=== PATIENT | female | born 1975 | race Hispanic/Latino ===

== ENCOUNTER 2016-09-18 17:08 | Emergency (ER) | payer MEDICAID, OTHER, SELFPAY ==
[2016-09-18 17:26] VITALS: BMI 33.8
--- NOTE | 2016-09-18 17:36 | ED PDOC ---
HPI: Psych/Substance Abuse Time Seen by Provider: 09/18/16 17:25 Chief Complaint (Provider): ETOH ingestion History Per: Patient History/Exam Limitations: no limitations Onset/Duration Of Symptoms: Persistent Additional Complaint(s): 40 y/o female brought in by EMS for acute alcohol intoxication. Patient found sleeping in public; no signs of trauma. Patient awake upon arrival; denies acute medical or psychiatric complaints. Past Medical History Reviewed: Historical Data, Nursing Documentation, Vital Signs - Medical History PMH: Anxiety, Bipolar Disorder, Depression, Diabetes, Hepatitis (C, with cirrhosis and liver failure), Personality Disorder Denies: HIV, HTN, Chronic Kidney Disease, Seizures, Sexually Transmitted Disease - Surgical History Surgical History: Back Surgery (neck abcess) - Family History Family History: States: Unknown Family Hx - Immunization History Hx Tetanus Toxoid Vaccination: No Hx Influenza Vaccination: No Hx Pneumococcal Vaccination: No - Home Medications Home Medications: Ambulatory Orders Medication Instructions Recorded traZODone [Desyrel] 200 mg PO HS PRN #60 tab 01/03/16 Fluoxetine HCl [Prozac] 80 mg PO DAILY 09/11/16 Gabapentin [Neurontin] 600 mg PO TID 09/11/16 Lorazepam [Ativan] 2 mg PO Q6H PRN 09/11/16 FLUoxetine [Prozac] 80 mg PO DAILY #30 cap 09/18/16 Gabapentin [Neurontin] 600 mg PO TID #90 cap 09/18/16 traZODone [Desyrel] 100 mg PO HS #60 tab 09/18/16 - Allergies Allergies/Adverse Reactions: Allergies Allergy/AdvReac Type Severity Reaction Status Date / Time acetaminophen [From Tylenol] AdvReac RASH Verified 09/11/16 23:36 Review of Systems ROS Statement: Except As Marked, All Systems Reviewed And Found Negative Physical Exam - Reviewed Nursing Documentation Reviewed: Yes Vital Signs Reviewed: Yes - Physical Exam Appears: Positive for: Well, Non-toxic, No Acute Distress Head Exam: Positive for: ATRAUMATIC, NORMAL INSPECTION, NORMOCEPHALIC Skin: Positive for: Normal Color Eye Exam: Positive for: Normal appearance Respiratory: Negative for: Respiratory Distress Neurologic/Psych: Positive for: Alert, Oriented Medical Decision Making Medical Decision Making: Patient awake and alert with steady gait. No emergent care needed. Stable for d/ c home. Scribe Attestation: Documented by Marian Chance acting as a scribe for NATE Benítez Provider Attestation: All medical record entries made by the Scribe were at my direction and personally dictated by me. I have reviewed the chart and agree that the record accurately reflects my personal performance of the history, physical exam, medical decision making, and the department course for this patient. I have also personally directed, reviewed, and agree with the discharge instructions and disposition. Disposition - Clinical Impression Clinical Impression: Alcohol abuse - Patient ED Disposition Is Patient to be Admitted: No - Disposition Disposition: Routine/Home Disposition Time: 18:07 Condition: STABLE Instructions: Alcohol Intoxication (ED) Forms: [facility] [facility] (Amharic)
[2016-09-18 17:44] VITALS: BP 132/76; PULSE 76; RESP 16; TEMP 98.1; O2SAT 97
== END 2016-09-18 17:46 | disposition home or self-care (01) ==
LOC: H.ER 17:08
DX: F10.10 Alcohol abuse, uncomplicated (principal); E11.9 Type 2 diabetes mellitus without complications; F31.9 Bipolar disorder, unspecified; F41.9 Anxiety disorder, unspecified; K74.60 Unspecified cirrhosis of liver

== ENCOUNTER 2016-09-22 21:56 | Inpatient (IN) | payer MEDICAID, OTHER, SELFPAY ==
[2016-09-22 21:56] VITALS: BMI 33.8
--- NOTE | 2016-09-22 21:58 | ED PDOC ---
Psych Transfer Clearance - Clearance Statement Clearance Statement: Reviewed vital signs, lab results and transfer papers. Patient clinically stable for psychiatric admission.
[2016-09-22] MEDS ORDERED: DiphenhydrAMINE 50 mg/ml Inj IM PRN (22:31)
[2016-09-22] MEDS ORDERED: Alum-Mag Hydrox-Simethicone Susp (30 mL) PO PRN (22:31)
[2016-09-22] MEDS ORDERED: Magnesium Hydroxide Susp 30 ml UD PO PRN (22:31)
--- NOTE | 2016-09-23 00:26 | PCM.BM ---
<Gerber,Laury L - Last Filed: 09/23/16 00:22> Treatment Plan Problems - Problems identified on initial assessmt Altered sleep pattern Date Initiated: 09/23/16 Time Initiated: 00:29 Assessment reference: NA Status: Active Altered Health Maintenance Date Initiated: 09/23/16 Time Initiated: 00:29 Assessment reference: NA Status: Active Self care deficit Date Initiated: 09/23/16 Time Initiated: 00:30 Assessment reference: NA Status: Active Treatment assets and liabiliti Patient Assests: cooperative, motivated, ADL independent, negotiates basic needs Patient Liabilities: poor support system, substance abuse, medical problems - Milieu Protocol Maintain good personal hygiene: daily Encourage regular showers, daily Remind patient to perform daily oral care, daily Assist patient to perform ADL's Maintain personal safety: daily Educate patient to report safety concerns to staff, daily Monitor environment for contraband/sharps Medication safety: Monitor for expected outcome, potential side effects: daily, Assess barriers to learning: daily, Assess readiness for medication education: every shift Discharge/Continuing Care - Education Needs Education Needs: Patient Medication, Patient Diagnosis/Disease Process, Patient Coping Skills, Patient Anger Management skills, Patient Placement options, Patient Community resources, Patient Activities of Daily Living, Patient Pain, Patient Nutrition, Patient Uses of Medical Equipment, Patient Health Practices/ Safety, Patient Personal Hygiene/Grooming, Patient Aftercare Safety Plan, Patient Other - Discharge Discharge Criteria: Free of Suicidal thoughts, Normal sleep pattern, Ability to care for self, No longer exhibiting s/s of withdrawal <Fernando Castellanos - Last Filed: 09/24/16 09:32> Treatment Plan Problems - Problems identified on initial assessmt Depression Date Initiated: 09/23/16 Time Initiated: 09:28 Assessment reference: SW Status: Active Comment: Restart Medications and encourage pt to participate in groups. Alcohol Use and Withdrawal Date Initiated: 09/23/16 Time Initiated: 09:28 Assessment reference: SW Status: Active Comment: Provide pt with interventions to help gain insight into alcohol use. Family Contact Family involvement: Famliy/SO not involved Family contact: Patient agrees to contact, Telephone contact initiated by staff Family contact name: Julisa (aunt) Family contact comment: [phone] - Goals for Treatment Patient goals for treatment: Restart medications, decrease depression, eliminate SI, help pt through withdrawl.
[2016-09-23 10:05] LABS: T4 12.1 ug/dl (5.5-11.0)
[2016-09-23] MEDS: Multivitamin With Minerals Tab PO SCH (10:12)
[2016-09-23 10:18] LABS: T3 1.57 nmol/L (1.49-2.60)
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
[2016-09-24] MEDS: Multivitamin With Minerals Tab PO SCH (09:27)
--- NOTE | 2016-09-24 10:06 | PCM.PYCHPN ---
Psychiatric Progress Note - Psychiatric Progress Note Patient seen today, length of contact: discussed with team Patient Chief Complaint: i can't eat Problems Identified/Issues Discussed: pt is still tremulous. states her stomach is upset and she doesn't want to eat. she is isolating in her room. she denies suicidal thoughts Medication Change: No Medical Record Reviewed: Yes Mental Status Examination - Cognitive Function Orientation: Person, Place, Situation, Time Memory: Intact Attention: WNL Concentration: WNL Association: WNL Fund of Knowledge: WN Decription of patient's judgement and insights: fair - Mood Mood: Depressed - Affect Affect: Depressed - Formal Thought Process Formal Thought Process: No Impairment - Suicidal Ideation Suicidal Ideation: No - Homicidal Ideation Homicidal Ideation: No Goal/Treatment Plan - Goal/Treatment Plan Need for Continued Stay: Remain at risks for inpatient hospitalization, Discharge may exacerbated symptoms Progress Toward Problem(s) and Goals/Treatment Plan: alcohol dependence major depression, recurrent will continue current treatment disposition planning hold taper of ativan until tomorrow Estimated Date of D/C: 09/30/16
--- NOTE | 2016-09-24 13:39 | PCM.PYCHPN ---
Psychiatric Progress Note - Psychiatric Progress Note Patient seen today, length of contact: disregard this note as it is written in error Patient Chief Complaint: i am nauseas Problems Identified/Issues Discussed: pt less tremulous today. wants to get substance abuse treatment, but has "many things to do" isolates in room. c/o nausea Medication Change: Yes (start celexa) Medical Record Reviewed: Yes Mental Status Examination - Cognitive Function Orientation: Person, Place, Situation, Time Memory: Intact Attention: WNL Concentration: WNL Association: WNL Fund of Knowledge: [facility] Decription of patient's judgement and insights: fair - Mood Mood: Depressed - Affect Affect: Depressed - Speech Speech: Appropriate - Formal Thought Process Formal Thought Process: No Impairment - Suicidal Ideation Suicidal Ideation: No - Homicidal Ideation Homicidal Ideation: No Goal/Treatment Plan - Goal/Treatment Plan Need for Continued Stay: Remain at risks for inpatient hospitalization, Discharge may exacerbated symptoms Progress Toward Problem(s) and Goals/Treatment Plan: alcohol dependence major depression, recurrent will continue current treatment disposition planning hold taper of ativan until tomorrow Estimated Date of D/C: 09/30/16
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
[2016-09-25] MEDS: Multivitamin With Minerals Tab PO SCH (10:02)
--- NOTE | 2016-09-25 12:02 | PCM.PYCHPN ---
Psychiatric Progress Note - Psychiatric Progress Note Patient seen today, length of contact: discussed with team Patient Chief Complaint: i am a little better Problems Identified/Issues Discussed: pt still with c/o nausea, although appetite is improved. she is leaving room and socializing more today. expressing that she is too worried about losing her bike to want to go to rehab. Medication Change: No ( ) Medical Record Reviewed: Yes Mental Status Examination - Cognitive Function Orientation: Person, Place, Situation, Time Memory: Intact Attention: WNL Concentration: WNL Association: WNL Fund of Knowledge: [facility] Decription of patient's judgement and insights: fair - Mood Mood: Depressed - Affect Affect: Depressed - Speech Speech: Appropriate - Formal Thought Process Formal Thought Process: No Impairment - Suicidal Ideation Suicidal Ideation: No - Homicidal Ideation Homicidal Ideation: No Goal/Treatment Plan - Goal/Treatment Plan Need for Continued Stay: Remain at risks for inpatient hospitalization, Discharge may exacerbated symptoms Progress Toward Problem(s) and Goals/Treatment Plan: alcohol dependence major depression, recurrent will continue current treatment disposition planning start to taper ativan to 1.5mg tid start prozac this weekend Estimated Date of D/C: 09/30/16
--- NOTE | 2016-09-25 15:56 | CT ---
PROCEDURE: CT HEAD WITHOUT CONTRAST. HISTORY: Head trauma COMPARISON: Head CT without contrast 09/04/2016. TECHNIQUE: Axial computed tomography images were obtained through the head/brain without intravenous contrast. Radiation dose: Total exam DLP = 838 mGy-cm. This CT exam was performed using one or more of the following dose reduction techniques: Automated exposure control, adjustment of the mA and/or kV according to patient size, and/or use of iterative reconstruction technique. FINDINGS: HEMORRHAGE: No intracranial hemorrhage. BRAIN: No mass effect or edema. No atrophy or chronic microvascular ischemic changes. VENTRICLES: Unremarkable. No hydrocephalus. CALVARIUM: Unremarkable. PARANASAL SINUSES: Unremarkable as visualized. No significant inflammatory changes. MASTOID AIR CELLS: Unremarkable as visualized. No inflammatory changes. OTHER FINDINGS: None. IMPRESSION: Normal CT of the Head. No significant interval change compared to prior head CT 09/04/2016.
[2016-09-26] MEDS: Multivitamin With Minerals Tab PO SCH (08:46)
--- NOTE | 2016-09-26 11:21 | PCM.PYCHPN ---
Psychiatric Progress Note - Psychiatric Progress Note Patient seen today, length of contact: discussed with team Patient Chief Complaint: why didn't you give me prozac ? Problems Identified/Issues Discussed: pt no longer with nausea. less tremulous. c.o depression. some mood lability and irritability. Medication Change: Yes (restart prozac) Medical Record Reviewed: Yes Mental Status Examination - Cognitive Function Orientation: Person, Place, Situation, Time Memory: Intact Attention: WNL Concentration: WNL Association: WNL Fund of Knowledge: [facility] Decription of patient's judgement and insights: fair - Mood Mood: Depressed, Anxious - Affect Affect: Depressed - Speech Speech: Appropriate - Formal Thought Process Formal Thought Process: No Impairment Psychotic Thoughts and Behaviors: denies a/v hallucinations - Suicidal Ideation Suicidal Ideation: No - Homicidal Ideation Homicidal Ideation: No Goal/Treatment Plan - Goal/Treatment Plan Need for Continued Stay: Remain at risks for inpatient hospitalization, Discharge may exacerbated symptoms Progress Toward Problem(s) and Goals/Treatment Plan: alcohol dependence major depression, recurrent will continue current treatment disposition planning lower ativan to 1mg tid start prozac 20mg daily Estimated Date of D/C: 09/30/16
[2016-09-27] MEDS: Multivitamin With Minerals Tab PO SCH (09:34)
--- NOTE | 2016-09-27 12:22 | PCM.PYCHPN ---
Psychiatric Progress Note - Psychiatric Progress Note Patient seen today, length of contact: discussed with team Patient Chief Complaint: i take ativan when i am home Problems Identified/Issues Discussed: pt now anxious about stopping her ativan and states she takes it at home. states she does not want inpt rehab. some mood lability. tolerating addition of Prozac Medication Change: No ( ) Medical Record Reviewed: Yes Mental Status Examination - Cognitive Function Orientation: Person, Place, Situation, Time Memory: Intact Attention: WNL Concentration: WNL Association: WNL Fund of Knowledge: [facility] Decription of patient's judgement and insights: fair - Mood Mood: Depressed, Anxious - Affect Affect: Depressed - Speech Speech: Appropriate - Formal Thought Process Formal Thought Process: No Impairment Psychotic Thoughts and Behaviors: denies a/v hallucinations - Suicidal Ideation Suicidal Ideation: No - Homicidal Ideation Homicidal Ideation: No Goal/Treatment Plan - Goal/Treatment Plan Need for Continued Stay: Remain at risks for inpatient hospitalization, Discharge may exacerbated symptoms Progress Toward Problem(s) and Goals/Treatment Plan: alcohol dependence major depression, recurrent will continue current treatment disposition planning lower ativan to 1mg tid continue prozac 20mg daily Estimated Date of D/C: 09/30/16
[2016-09-28] MEDS: Multivitamin With Minerals Tab PO SCH (08:27)
--- NOTE | 2016-09-28 13:59 | PCM.PYCHPN ---
Psychiatric Progress Note - Psychiatric Progress Note Patient seen today, length of contact: discussed with team Patient Chief Complaint: i can't believe you lower my ativan Problems Identified/Issues Discussed: pt still resistant to idea of tapering ativan. she is seeking increase in prozac. she isolates in room. minimizes role of alcohol dependence on her symptoms. Medication Change: Yes ( ) Medical Record Reviewed: Yes Mental Status Examination - Cognitive Function Orientation: Person, Place, Situation, Time Memory: Intact Attention: WNL Concentration: WNL Association: WNL Fund of Knowledge: WN Decription of patient's judgement and insights: fair - Mood Mood: Depressed, Anxious - Affect Affect: Depressed - Speech Speech: Appropriate - Formal Thought Process Formal Thought Process: No Impairment Psychotic Thoughts and Behaviors: denies a/v hallucinations - Suicidal Ideation Suicidal Ideation: No - Homicidal Ideation Homicidal Ideation: No Goal/Treatment Plan - Goal/Treatment Plan Need for Continued Stay: Remain at risks for inpatient hospitalization, Discharge may exacerbated symptoms Progress Toward Problem(s) and Goals/Treatment Plan: alcohol dependence major depression, recurrent will continue current treatment disposition planning lower ativan to 1mg bid increase prozac to 60mg daily Estimated Date of D/C: 09/30/16
[2016-09-28 17:04] VITALS: O2SAT 100
[2016-09-29] MEDS: Multivitamin With Minerals Tab PO SCH (09:20)
[2016-09-29 09:55] VITALS: BP 139/79; PULSE 90; RESP 20; TEMP 96
--- NOTE | 2016-09-29 11:52 | PCM.PYCHDC ---
Mental Status Examination - Mental Status Examination Orientation: Person, Place, Situation, Time Memory: Intact Mood: Neutral Affect: Broad Speech: Appropriate Attention: WNL Concentration: WNL Association: WNL Fund of Knowledge: WNL Formal Thought Process: No Impairment Description of patient's judgement and insight: fair Psychotic Thoughts and Behaviors: denies a/v hallucinations Suicidal Ideation: No Current Homicidal Ideation?: No Plan: pt denies any suicidal or homicidal thoughts Discharge Summary - Discharge Note Reason for Hospitalization: alcohol dependence, suicidal threats Psychiatric History (includes Medical, Family, Personal Hx): history of previous admisssions, recent dc from [facility] Consultations:: List each consultation separately and include: 1. Reason for request. 2. Findings. 3. Follow-up Consultations: seen by hospitalist Summary of Hospital Course include:: 1. Description of specific treatment plan utilized for patients during their course of treatmen. 2. Summarize the time- course for resolution of acute symptoms and/or regressed behaviors. 3. Describe issues identified and worked on during hospitalization. 4. Describe medication utilized. 5. Describe medical problems identified and treated. 6. Reassessment of suicide risk Summary of Hospital Course: pt discharged from [facility] on 09/18/16. she has a history of alcohol dependence and depression. she had a bal of over 300 when presenting to ER. she was brought to [facility] ER by the police after they had to physically prevent her from jumping over a railing in a suicide attempt. pt reports she has been depressed and again abusing alcohol- she states she drinks 3-4 pints of vodka daily. she is homeless. she does not appear to have been following up with any treatment. she is currently tremulous and nauseated. she reports feeling safe in the hospital now. she denies any psychotic symptoms. hospital course [facility] and oriented to the unit. placed on routine safety protocols. started on ativan 2mg tid to help detox from alcohol. pt tolerated the tapering of the ativan and was found hoarding ativan pills in her room, despite asking for higher dose. she was denying suicidal or homicidal thoughts. she was stating that she did not want to have any inpt treatment for alcohol dependence. she was not exhibiting any withdrawal symptoms. she was discharged against medical advice. - Final Diagnosis (DSM 5) Condition upon Discharge: GOOD DSM 5: alcohol dependence depression, recurrent moderate Disposition: AGAINST MEDICAL ADVICE Follow-up Treatment Plan: discharged against medical advice as pt was misusing and hoarding ativan. discussed risk of misuing ativan and danger of mixing ativan with alcohol pt encouraged to attend AA meetings daily and to abstain from alcohol pt encouraged to call 911 if any suicidal or homicidal thoughts. no medications were provided to pt - Smoking Cessation Smoking Cessation Medication prescribed: No - Antipsychotic Medications Pt discharged on 2 or more routine antipsychotic medications: No
== END 2016-09-29 12:00 | disposition left against medical advice (07) | DRG 749 ==
LOC: H.ER 21:56 → H.PSYCH 22:04
PROVIDERS: ADMIT Psychiatry & Neurology Psychiatry; ATTEND Psychiatry & Neurology Psychiatry
DX: F10.229 Alcohol dependence with intoxication, unspecified (principal); R45.851 Suicidal ideations; K70.30 Alcoholic cirrhosis of liver without ascites; F33.1 Major depressive disorder, recurrent, moderate; B19.20 Unspecified viral hepatitis C without hepatic coma; K70.10 Alcoholic hepatitis without ascites; K76.0 Fatty (change of) liver, not elsewhere classified; Y90.8 Blood alcohol level of 240 mg/100 ml or more; Z59.0 Homelessness; Z91.410 Personal history of adult physical and sexual abuse; F17.210 Nicotine dependence, cigarettes, uncomplicated; F41.9 Anxiety disorder, unspecified; D63.8 Anemia in other chronic diseases classified elsewhere; R25.1 Tremor, unspecified

== ENCOUNTER 2016-09-30 08:34 | Observation (INO) | payer SELFPAY ==
[2016-09-30 08:35] VITALS: BMI 33.8
[2016-09-30 08:39] VITALS: BP 111/67; PULSE 111; RESP 20; TEMP 97.1; O2SAT 99
--- NOTE | 2016-09-30 10:22 | ED PDOC ---
HPI: Psych/Substance Abuse Time Seen by Provider: 09/30/16 09:13 Chief Complaint (Nursing): Alcohol Ingestion Chief Complaint (Provider): Alcohol Ingestion History Per: EMS History/Exam Limitations: intoxication (etoh) Onset/Duration Of Symptoms: Hrs (prior to arrival ) Additional Complaint(s): Teena Farris is a 40 year old female brought to the ED by [place] Police for alcohol intoxication [place] The patient states she was taking a nap and admits to drinking alcohol. She denies any head injury. No drugs. Not suicidal or homicidal. No chest pain, dyspnea, headaches, dizziness. PMD: None provided Past Medical History Reviewed: Historical Data, Nursing Documentation, Vital Signs Vital Signs: Last Vital Signs Temp 97.1 F L 09/30/16 08:38 Pulse 111 H 09/30/16 08:38 Resp 20 09/30/16 08:38 BP 111/67 09/30/16 08:38 Pulse Ox 99 09/30/16 08:38 - Medical History PMH: Anxiety, Bipolar Disorder, Depression, Diabetes, Gastritis, Hepatitis (C, with cirrhosis and liver failure), Pancreatitis, Personality Disorder Denies: HIV, HTN, Chronic Kidney Disease, Seizures, Sexually Transmitted Disease - Surgical History Surgical History: Back Surgery (neck abcess), - Family History Family History: States: Unknown Family Hx - Social History Current smoker - smoking cessation education provided: Yes Alcohol: Other Drugs: Denies - Immunization History Hx Tetanus Toxoid Vaccination: No Hx Influenza Vaccination: No Hx Pneumococcal Vaccination: No - Home Medications Home Medications: Ambulatory Orders Medication Instructions Recorded traZODone [Desyrel] 200 mg PO HS PRN #60 tab 01/03/16 FLUoxetine [Prozac] 60 mg PO DAILY cap 09/29/16 Folic Acid 1 mg PO DAILY tab 09/29/16 Gabapentin [Neurontin] 600 mg PO TID tab 09/29/16 Multimineral/Multivitamin 1 tab PO DAILY tab 09/29/16 [Therapeutic-M Tab] Ondansetron [Zofran Tab] 4 mg PO Q4 PRN tab 09/29/16 Thiamine [Vitamin B1 Tab] 100 mg PO DAILY tab 09/29/16 - Allergies Allergies/Adverse Reactions: Allergies Allergy/AdvReac Type Severity Reaction Status Date / Time acetaminophen [From Tylenol] AdvReac RASH Verified 09/22/16 06:22 Review of Systems Review Of Systems: ROS cannot be obtained secondary to pt's inabilty to answer questions. (etoh intoxication) Physical Exam - Reviewed Nursing Documentation Reviewed: Yes Vital Signs Reviewed: Yes - Physical Exam Appears: Positive for: Non-toxic, No Acute Distress Head Exam: Positive for: ATRAUMATIC, NORMAL INSPECTION, NORMOCEPHALIC Skin: Positive for: Normal Color, Warm, DRY Eye Exam: Positive for: EOMI, Normal appearance, PERRL ENT: Positive for: Normal ENT Inspection Neck: Positive for: Normal, Painless ROM Cardiovascular/Chest: Positive for: Regular Rate, Rhythm, Chest Non Tender Respiratory: Positive for: Normal Breath Sounds. Negative for: Respiratory Distress Gastrointestinal/Abdominal: Positive for: Normal Exam, Bowel Sounds, Soft. Negative for: Tenderness Back: Positive for: Normal Inspection. Negative for: L CVA Tenderness, R CVA Tenderness Extremity: Positive for: Normal ROM. Negative for: Tenderness, Pedal Edema Neurologic/Psych: Positive for: Alert, Oriented - Laboratory Results Interpretation Of Abn Labs: 339 etoh - ECG O2 Sat by Pulse Oximetry: 99 (RA) Pulse Ox Interpretation: Normal Medical Decision Making Medical Decision Makin:13 Impression: Alcohol ingestion Plan: * Alcohol serum * POC * Crisis Evaluation * 1:1 Obvs * Admit to hospital routine Scribe Attestation: Documented by Adeline Waggoner, acting as a scribe for Cornelio Lema MD. Provider Scribe Attestation: All medical record entries made by the Scribe were at my direction and personally dictated by me. I have reviewed the chart and agree that the record accurately reflects my personal performance of the history, physical exam, medical decision making, and the department course for this patient. I have also personally directed, reviewed, and agree with the discharge instructions and disposition. ED OBSERVATION Discharge: Yes Date of observation admission: 09/30/16 Time of observation admission: 09:36 - Observation admission statement Patient is being placed in observation because:: Time intensive ED evaluation - Goals of Observation Goals of observation are:: Results of ED workup, crisis evaluation, and eventual disposition. - Progress Note Progress Note: 09/30/16 11:12 Pt's vitals are stable. Continue monitoring. Pending crisis eval. 09/30/16 12:39 Pt's vitals are stable. Continue monitoring. Pending crisis eval. 09/30/16 14:06 Continue monitoring pt. Vitals are stable. Pending crisis eval. 09/30/16 15:34 Awake. Tolerated PO. Fu with pcp. AAOx3. Ambulated with no issues. Disposition - Clinical Impression Clinical Impression: Alcohol abuse - Patient ED Disposition Is Patient to be Admitted: No Counseled Patient/Family Regarding: Studies Performed, Diagnosis, Need For Followup - Disposition Disposition: Routine/Home Disposition Time: 15:35 Condition: STABLE
== END 2016-09-30 16:55 | disposition home or self-care (01) ==
LOC: H.ER 08:34 → H.EROBSV 09:36
PROVIDERS: ADMIT Emergency Medicine; ATTEND Emergency Medicine
DX: F10.129 Alcohol abuse with intoxication, unspecified (principal); Y90.8 Blood alcohol level of 240 mg/100 ml or more; F41.9 Anxiety disorder, unspecified; K29.70 Gastritis, unspecified, without bleeding; B18.2 Chronic viral hepatitis C; E11.9 Type 2 diabetes mellitus without complications; F31.9 Bipolar disorder, unspecified; F60.9 Personality disorder, unspecified; F17.200 Nicotine dependence, unspecified, uncomplicated; Z88.6 Allergy status to analgesic agent

== ENCOUNTER 2016-09-30 22:16 | Observation (INO) | payer SELFPAY ==
[2016-09-30 22:16] VITALS: BMI 33.8
[2016-09-30 22:24] VITALS: RESP 16; TEMP 98; O2SAT 97
--- NOTE | 2016-10-01 00:30 | ED PDOC ---
HPI: Psych/Substance Abuse Time Seen by Provider: 09/30/16 22:25 Chief Complaint (Nursing): Alcohol Ingestion Chief Complaint (Provider): etoh History Per: Patient, EMS Additional History Per: Patient, EMS Additional Complaint(s): 40 y/o female brought in by EMS for acute alcohol intoxication. Patient well known to ED and sports book writer for same. Patient awake, admits to drinking, denies acute medical or psychiatric complaints. Past Medical History Reviewed: Historical Data, Nursing Documentation, Vital Signs Vital Signs: Last Vital Signs Temp 98.0 F 09/30/16 22:22 Pulse 88 09/30/16 22:22 Resp 16 09/30/16 22:22 BP 138/70 09/30/16 22:22 Pulse Ox 97 09/30/16 22:22 - Medical History PMH: Anxiety, Bipolar Disorder, Depression, Diabetes, Gastritis, Hepatitis (C, with cirrhosis and liver failure), Pancreatitis, Personality Disorder Denies: HIV, HTN, Chronic Kidney Disease, Seizures, Sexually Transmitted Disease - Surgical History Surgical History: Back Surgery (neck abcess), - Family History Family History: States: Unknown Family Hx - Immunization History Hx Tetanus Toxoid Vaccination: No Hx Influenza Vaccination: No Hx Pneumococcal Vaccination: No - Home Medications Home Medications: Ambulatory Orders Medication Instructions Recorded traZODone [Desyrel] 200 mg PO HS PRN #60 tab 01/03/16 FLUoxetine [Prozac] 60 mg PO DAILY cap 09/29/16 Folic Acid 1 mg PO DAILY tab 09/29/16 Gabapentin [Neurontin] 600 mg PO TID tab 09/29/16 Multimineral/Multivitamin 1 tab PO DAILY tab 09/29/16 [Therapeutic-M Tab] Ondansetron [Zofran Tab] 4 mg PO Q4 PRN tab 09/29/16 Thiamine [Vitamin B1 Tab] 100 mg PO DAILY tab 09/29/16 - Allergies Allergies/Adverse Reactions: Allergies Allergy/AdvReac Type Severity Reaction Status Date / Time acetaminophen [From Tylenol] AdvReac RASH Verified 09/30/16 22:22 Review of Systems ROS Statement: Except As Marked, All Systems Reviewed And Found Negative Physical Exam - Reviewed Nursing Documentation Reviewed: Yes Vital Signs Reviewed: Yes - Physical Exam Appears: Positive for: Well, Non-toxic, No Acute Distress Head Exam: Positive for: ATRAUMATIC, NORMAL INSPECTION, NORMOCEPHALIC Cardiovascular/Chest: Positive for: Regular Rate, Rhythm Respiratory: Positive for: Normal Breath Sounds Extremity: Positive for: Normal ROM Neurologic/Psych: Positive for: Alert, Oriented, Other (slurred speech, +AOB) - ECG O2 Sat by Pulse Oximetry: 97 - Progress ED Course And Treament: alcohol level, accucheck Upon taking patient's liquor away from patient, she attempted to get out of stretcher with unsteady gait. Patient escorted back to bed by sports book writer/security. Patient continuing to attempt to get out of bed and becoming agitated. Patient restrained for safety, now states she will calm down if food given. Restraints removed, patient tolerated tray, now sleeping. ED OBSERVATION Discharge: Yes Date of observation admission: 10/01/16 Time of observation admission: 00:30 - Observation admission statement Patient is being placed in observation because:: acute alcohol intoxication - Goals of Observation Goals of observation are:: observe for clinical sobriety - Progress Note Progress Note: 10/01/16 00:30 Patient sleeping, no distress 10/01/16 2:00 Patient sleeping, no distress 4:00 Patient sleeping, no distress 5:45 Patient awake, alert, oriented x3. Ambulating steady gait. No complaints. stable for discharge Disposition - Clinical Impression Clinical Impression: Alcohol abuse - Patient ED Disposition Is Patient to be Admitted: No Counseled Patient/Family Regarding: Studies Performed, Diagnosis, Need For Followup - Disposition Disposition: Routine/Home Disposition Time: 05:45 Condition: STABLE
[2016-10-01 06:24] VITALS: BP 137/86; PULSE 87
== END 2016-10-01 05:44 | disposition home or self-care (01) ==
LOC: H.ER 22:16 → UNDOADMOB 10-01 00:05 → H.EROBSV 10-01 00:05
PROVIDERS: ADMIT Emergency Medicine; ATTEND Emergency Medicine
DX: F10.10 Alcohol abuse, uncomplicated (principal); E11.9 Type 2 diabetes mellitus without complications; Z86.59 Personal history of other mental and behavioral disorders; K74.60 Unspecified cirrhosis of liver